=== PATIENT | female | born 1985 | race Caucasian/White ===

== ENCOUNTER 2018-09-19 09:59 | Emergency (ER) | payer OTHER ==
--- NOTE | 2018-09-19 10:37 | ER ---
Nurse's Notes [facility] Name: Eugene Adam Age: 33 yrs Sex: Female : 1985 Arrival Date: 09/19/2018 Time: 10:03 Bed 19 Private MD: Germain Gomez E Diagnosis: Cellulitis of face Presentation: 09/19 10:15 Presenting complaint: Patient states: woke up with redness and swelling to right iw eyebrow and eyelid area. Transition of care: patient was not received from another setting of care. Onset of symptoms was September 19, 2018. Risk Assessment: Do you want to hurt yourself or someone else? Patient reports no desire to harm self or others. Initial Sepsis Screen: Does the patient meet any 2 criteria? No. Patient's initial sepsis screen is negative. Does the patient have a suspected source of infection? No. Patient's initial sepsis screen is negative. Care prior to arrival: None. 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 - Social history:: Smoking status: Patient/guardian denies using tobacco. - Ebola Screening: : Patient negative for fever greater than or equal to 101.5 degrees Fahrenheit, and additional compatible Ebola Virus Disease symptoms Patient denies exposure to infectious person Patient denies travel to an Ebola-affected area in the 21 days before illness onset No symptoms or risks identified at this time. Screenin:25 Abuse screen: Denies threats or abuse. Nutritional screening: No deficits noted. em Tuberculosis screening: No symptoms or risk factors identified. Fall Risk None identified. Assessment: 10:25 General: Appears in no apparent distress. uncomfortable, Behavior is calm, cooperative. em Pain: Complains of pain in right supraorbital ridge, right upper eyelid, medial canthus of right eye, lateral canthus of right eye and right lower eyelid. Neuro: Level of Consciousness is awake, alert, obeys commands, Oriented to person, place, time, situation. Cardiovascular: Capillary refill < 3 seconds Patient's skin is warm and dry. Respiratory: Airway is patent Respiratory effort is even, unlabored, Respiratory pattern is regular, symmetrical. GI: No deficits noted. : No deficits noted. EENT: No deficits noted. Derm: Skin is intact, Skin is normal, swelling noted to around the right eye. Musculoskeletal: Capillary refill < 3 seconds, Range of motion: intact in all extremities. 10:35 Reassessment: Patient appears in no apparent distress at this time. I agree with above iw assessment by Santosh Hunter LVN. Vital Signs: 10:16 Pulse 111; Resp 18; Temp 98.5; Pulse Ox 99% on R/A; Height 4 ft. 10 in. (147.32 cm); iw Pain 5/10; 10:23 BP 181 / 110; em 10:58 BP 174 / 106; Pulse 105; Resp 19; Pulse Ox 99% on R/A; em ED Course: 10:03 Patient arrived in ED. tw3 10:06 Germain Gomez MD is Private Physician. as 10:12 Felice Castañeda MD is Attending Physician. kdr 10:12 Santosh Hunter LVN is Primary Nurse. em 10:16 Triage completed. iw 10:16 Arm band placed on. iw 10:25 Patient has correct armband on for positive identification. Placed in gown. Bed in low em position. Adult w/ patient. 10:35 Germain Gomez MD is Referral Physician. kdr 10:56 No provider procedures requiring assistance completed. Patient did not have IV access em during this emergency room visit. Administered Medications: 10:52 Drug: Clindamycin 600 mg {Note: 2ml given in left and 2ml given in the right gluteus.} em Route: IM; Site: left gluteus; 11:02 Follow up: Response: No adverse reaction em 10:52 Drug: Bactrim (160 mg-800 mg (DS) 1 tablet Route: PO; em 11:02 Follow up: Response: No adverse reaction em Outcome: 10:36 Discharge ordered by . kdr 10:59 Discharged to home ambulatory, with family. em 10:59 Condition: good 10:59 Discharge instructions given to patient, family, Instructed on discharge instructions, follow up and referral plans. medication usage, Demonstrated understanding of instructions, follow-up care, medications, Prescriptions given X 2. 11:03 Patient left the ED. em Signatures: Felice Castañeda MD MD kdr Munoz, Edgar, SHIP LABORER SHIP LABORER em Ale Doll Irene, [place] RN iw Nikolai, Maria M tw3
--- NOTE | 2018-09-19 10:37 | EDPHYS ---
Physician Documentation [facility] Name: Eugene Adam Age: 33 yrs Sex: Female : 1985 Arrival Date: 09/19/2018 Time: 10:03 Bed 19 Private MD: Germain Gomez E ED Physician Felice Castañeda HPI: 09/19 10:28 This 33 yrs old Female presents to ER via Ambulatory with complaints of kdr Insect Bite. 10:28 The patient presents with cellulitis of the inner aspect of right eyebrow and right kdr supraorbital ridge, the patient presents with a swollen area of the inner aspect of right eyebrow and right supraorbital ridge. Description: irregular, localized, erythematous, swollen, warm. Onset: The symptoms/episode began/occurred this morning, 2 day(s) ago. 10:29 Possible cause(s): insect sting. Associated signs and symptoms: The patient has no kdr apparent associated signs or symptoms, Pertinent negatives: Vision unimpaired. No other surrounding structure impairment. Modifying factors: the symptoms are alleviated by nothing, the symptoms are aggravated by pressure, touching. Severity of symptoms: At their worst the symptoms were mild, in the emergency department the symptoms are unchanged. The patient has not experienced similar symptoms in the past. The patient has not recently seen a physician. 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 - Social history:: Smoking status: Patient/guardian denies using tobacco. - Ebola Screening: : Patient negative for fever greater than or equal to 101.5 degrees Fahrenheit, and additional compatible Ebola Virus Disease symptoms Patient denies exposure to infectious person Patient denies travel to an Ebola-affected area in the 21 days before illness onset No symptoms or risks identified at this time. ROS: 10:29 Constitutional: Negative for fever, chills, and weight loss, ENT: Negative for injury, kdr pain, and discharge, Neck: Negative for injury, pain, and swelling, Cardiovascular: Negative for chest pain, palpitations, and edema, Respiratory: Negative for shortness of breath, cough, wheezing, and pleuritic chest pain, Abdomen/GI: Negative for abdominal pain, nausea, vomiting, diarrhea, and constipation, Back: Negative for injury and pain. 10:29 Eyes: Positive for pain, redness, swelling, Negative for blurry vision, discharge, foreign body sensation, injury or acute deformity, itching, matting, photophobia, sunken appearance, swelling, tearing, vision loss, visual disturbance. Exam: 10:29 Constitutional: This is a well developed, well nourished patient who is awake, alert, kdr and in no acute distress. Head/Face: Normocephalic, atraumatic. ENT: Nares patent. No nasal discharge, no septal abnormalities noted. Tympanic membranes are normal and external auditory canals are clear. Oropharynx with no redness, swelling, or masses, exudates, or evidence of obstruction, uvula midline. Mucous membranes moist. Neck: Trachea midline, no thyromegaly or masses palpated, and no cervical lymphadenopathy. Supple, full range of motion without nuchal rigidity, or vertebral point tenderness. No Meningismus. Chest/axilla: Normal chest wall appearance and motion. Nontender with no deformity. No lesions are appreciated. 10:29 Eyes: Periorbital structures: cellulitis, that is mild, on the outer aspect of left eyebrow and left supraorbital ridge, erythema, swelling. Vital Signs: 10:16 Pulse 111; Resp 18; Temp 98.5; Pulse Ox 99% on R/A; Height 4 ft. 10 in. (147.32 cm); iw Pain 5/10; 10:23 BP 181 / 110; em 10:58 BP 174 / 106; Pulse 105; Resp 19; Pulse Ox 99% on R/A; em MDM: 10:29 Data reviewed: vital signs, nurses notes. Counseling: I had a detailed discussion with kdr the patient and/or guardian regarding: the historical points, exam findings, and any diagnostic results supporting the discharge/admit diagnosis. 10:36 Patient medically screened. kdr Administered Medications: 10:52 Drug: Clindamycin 600 mg {Note: 2ml given in left and 2ml given in the right gluteus.} em Route: IM; Site: left gluteus; 11:02 Follow up: Response: No adverse reaction em 10:52 Drug: Bactrim (160 mg-800 mg (DS) 1 tablet Route: PO; em 11:02 Follow up: Response: No adverse reaction em Disposition: 09/19/18 10:36 Discharged to Home. Impression: Cellulitis of face. - Condition is Stable. - Discharge Instructions: Cellulitis, Adult, [id number]. - Prescriptions for Clindamycin HCl 300 mg Oral Capsule - take 1 capsule by ORAL route every 6 hours for 10 days; 40 capsule. Bactrim DS 800- 160 mg Oral Tablet - take 1 tablet by ORAL route every 12 hours for 10 days; 20 tablet. - Medication Reconciliation Form, Thank You Letter, Antibiotic Education form. - Follow up: Germain Gomez MD; When: 2 - 3 days; Reason: If symptoms return, Further diagnostic work-up, Recheck today's complaints, Continuance of care, Re-evaluation by your physician. - Problem is new. - Symptoms are unchanged. Signatures: Felice Castañeda MD MD kdr Santosh Hunter, RATING SPECIALIST RATING SPECIALIST em Yoselyn Doshi RN RN iw Corrections: (The following items were deleted from the chart) 10:33 10:28 Onset: The symptoms/episode began/occurred gradually, 4 day(s) ago, kdr kdr 11:03 10:36 09/19/2018 10:36 Discharged to Home. Impression: Cellulitis of face. Condition is em Stable. Forms are Medication Reconciliation Form, Thank You Letter, Antibiotic Education, Prescription Opioid Use. Follow up: Germain Gomez; When: 2 - 3 days; Reason: If symptoms return, Further diagnostic work-up, Recheck today's complaints, Continuance of care, Re-evaluation by your physician. Problem is new. Symptoms are unchanged. kdr
[2018-09-19] MEDS ORDERED: SMZ./TMP. 800/160 MG TABLET ONE (10:53)
[2018-09-19] MEDS ORDERED: CLINDAMYCIN IV 150 MG/ML (4 mL) VIAL ONE (10:53)
== END 2018-09-19 11:03 | disposition home or self-care (01) ==
LOC: ER 09:59
DX: L03.211 Cellulitis of face (principal)
CPT/HCPCS: 96372; 99283; S0077